=== PATIENT | female | born 1945 | race Caucasian/White ===

== ENCOUNTER 2020-09-27 09:19 | Day surgery (SDC) | payer MEDICARE, OTHER ==
[~2020-09-27 09:19] MED LIST: CHONDR SU A NA/HYALUR INTRAOC KIT (SURGICARE) ONE; DORZOLAMIDE HCL 2%/TIMOLOL MALEAT 0.5% OPH SOLN 10 ML OD PRN; EPINEPHRINE INJ/PF 1 MG/1 ML AMPULE ONE; FENTANYL CITRATE INJ/PF 100 MCG/2 ML AMPUL ONE; KETOROLAC TROMETHAMINE 0.45% 4 DROP/0.4 ML DROPERETTE OD PRN; LIDOCAINE 1%/PHENYLEPHRINE 1.5% 1 ML VIAL ONE; MIDAZOLAM 2 MG/2 ML INJ ONE
[2020-09-27] MEDS: CYCLOPENTOLATE 0.2%/PHENYLEPHRINE 1% OPH SOLN 2 ML OD PRN ×3 (09:48→10:01)
[2020-09-27] MEDS: TETRACAINE HCL 0.5% OPH SOLN 4 ML OD PRN ×3 (09:48→10:30)
[2020-09-27] MEDS: TROPICAMIDE 1% OPH SOLN 15 ML OD PRN ×3 (09:48→10:01)
[2020-09-27] MEDS: BESIFLOXACIN HCL 0.6% OPH SUSP 5 ML BOTTLE OD PRN ×3 (09:48→10:56)
--- NOTE | 2020-09-27 20:48 | Operative Report ---
Operative Report-[facility] Operative Report: PREOPERATIVE DIAGNOSIS: Nuclear, cortical and posterior subcapsular cataract, right eye POSTOPERATIVE DIAGNOSIS: Nuclear, cortical and posterior subcapsular cataracts, right eye PROCEDURE: Phacoemulsification and posterior chamber intraocular lens implant, right eye PROCEDURE DATE: [September 27, 2020] SURGEON: Cayetano George MD Next EXPLOSIVE OPERATOR: [] ANESTHESIA: Topical with IV sedation next COMPLICATIONS: None TISSUE TO PATHOLOGY: None ESTIMATED BLOOD LOSS: None INDICATION FOR SURGERY: [Ms. Diallo is a 74 year old female] Who presents to our clinic complaining of difficulty seeing, to read and drive due to blurry vision in both eyes. On examination, she was found to have best corrected visual acuity of [20/40] in the right eye. Ophthalmoscopy revealed a [+2] nuclear, [+2] corneal degeneration, [+1] posterior subcapsular cataract in the right eye with normal appearing cornea, vitreous, retina and optic nerve. I discussed the findings of the exam with the patient. We discussed the risks, benefits and alternatives of cataract extraction and intraocular lens implant in the right eye as a means of improving her vision. Risks that were discussed with the patient include infection, bleeding, retinal detachment and possible need for additional surgery. The patient understands that she may need to wear glasses after surgery. After discussion, the patient indicated her interest in having this procedure performed by signing an informed witness consent form. REPORT OF PROCEDURE: On the day of surgery, the patient was given a topical application to the right eye to consist of drop of Tetracaine 0.5%, tropicamide 1%, Cyclomidril, Besivance 0.6% and Acular 0.45%. The patient was then taken to the operating room in a supine position in a standard eye bed. Intravenous sedation was administered and she was prepped and draped in the standard fashion. A timeout was performed to confirm the surgical site. Attention was directed to the right eye where a paracentesis was created at the 11:30 position at the corneal limbus with a 15 degree blade. The anterior chamber was filled with 0.3 mL of 1% methylparaben free lidocaine and after 30 seconds the anterior chamber was filled with viscoelastic material. A 3 plane corneal incision was then made at the 9 o'clock position at the cornea limbus with a keratome. A continuous curvilinear capsulorrhexis was then made in the anterior capsule of the lens with a cystotome. The lens was hydrodissected using balanced saline solution. The lens nucleus was then removed by phacoemulsification using the stop and chop technique. CDE [8.31]. The remaining cortical material was then removed from the posterior capsular bag using irrigation and aspiration. The posterior capsule bag was filled with viscoelastic material and a lens implant was inserted into the posterior capsule bag. I have chosen for this case is a one piece acrylic lens from [employer] model [[id number]], serial number [[id number]], lens power [23.0]. The lens was removed from its package, inspected and found to be free of defects it was loaded into a [employer] D inser ter. The insulation supervisor was passed through the temporal wound and the lens was advanced into the posterior capsular bag. The lens implant was centered in the posterior capsular bag with the Jermaine spatula the viscoelastic material was removed from the eye using irrigation and aspiration. The wounds were closed by stromal hydration and they were tested with the Weck-Starr sponges and found to have no leaks. Intraocular pressure was assessed by manual palpitation found to be with in the physiologic range. The drape and speculum were removed. Drops of Durezol, Combigan and gatifloxacin were instilled in the right eye. The patient was then taken to the recovery room in good condition. The patient tolerated the procedure very well. The patient was given a prescription for gatifloxacin, Durezol and Ilervo to use every 2 hours while awake today. She will return my clinic tomorrow for follow-up evaluation.
== END 2020-09-27 11:44 | disposition home or self-care (01) ==
LOC: SC 09:19
PROVIDERS: ATTEND Ophthalmology
DX: H25.811 Combined forms of age-related cataract, right eye (principal); I10 Essential (primary) hypertension; D64.9 Anemia, unspecified
CPT/HCPCS: 66984; V2632; J2250; J3490 ×2; A9270; J0171; J3010